=== PATIENT | female | born 1960 | race Caucasian/White ===

== ENCOUNTER → 2019-07-16 15:41 | Outpatient (CLI) | payer OTHER, MEDICAID, SELFPAY ==
--- NOTE | 2019-07-16 | DI.MRI.S_ITS ---
PROCEDURE: MR LUMBAR SPINE WO CON INDICATIONS: CHRONIC LOW BACK PAIN WITH LEFT FOOTDROP TECHNIQUE: Noncontrast sagittal T1 spin echo and T2 fast echo, sagittal STIR, axial T1 and T2 fast spin echo through the lumbar spine. In cases with scoliosis, additional coronal T2 fast spin echo may be performed. COMPARISON: [facility], MR, LUMBAR SPINE W/O CONTRAST, 10/10/2005, 18:29. [facility], CT, ABD/PELVIS W&WO CON (PNL), 11/28/2009, 18:42. [facility], CR, XR LUMBAR SPINE 2 OR 3 VIEWS, 05/01/2019, 15:00. FINDINGS: Image quality: Excellent. Alignment and Curvature: There is a transitional anatomy. Assuming sacralization of L5, the numbering normoncurvature used in this report is identical to the previous comparison MRI report dated 10/10/2005. There is grade 1 anterolisthesis of L3 on L4. Bone Marrow: Marrow is of normal overall signal. No acute vertebral body compression fractures. Spinal Cord: Conus medullaris terminates at the L1-L2 level. Visualized cord demonstrates normal signal and size. Paraspinous Soft Tissues: No paravertebral masses. T12-L1: Preserved disc height and disc signal. There is posterior disc bulge. The central canal is patent. No foraminal stenosis. No definitive nerve root impingement. L1-L2: Large anterior bridging osteophyte complex. Preserved disc height and disc signal. No central canal or foraminal stenosis. L2-L3: Mild loss of disc height and disc signal. There is diffuse posterior disc bulge. Mild bilateral facet arthropathy. The central canal is mildly narrowed. [id number]-kpxpgvew bilateral foraminal stenosis, unchanged compared to the last exam. No definitive nerve root impingement. L3-L4: Moderate loss of disc height and disc signal. There is diffuse posterior disc bulge. Mild to moderate bilateral facet arthropathy. The central canal is mildly narrowed. Snzldmya-[id number] bilateral foraminal stenosis, increased compared to the last exam. No definitive nerve root impingement. L4-L5: Mild loss of disc height. Moderate disc desiccation. There is diffuse posterior disc bulge. Mild to moderate bilateral facet arthropathy. The central canal is mildly narrowed. Severe left and vcybbyri-pn-ehunzf right foraminal stenosis increased comparison last exam. Possible right S1 nerve root impingement. L5-S1: Normal. IMPRESSION: 1. Multilevel degenerative disc disease and facet arthropathy as described. 2. Mild central canal stenosis at L2-L3, L3-L4 and L4-L5. 3. Multilevel foraminal stenoses as described, severe at L4-L5 on the left, [id number]-[id number] at L3 and L4 bilaterally and L5-L5 on the right. 4. Transitional anatomy is present. Thoracic spine x-ray would be helpful to confirm vertebral levels. Please confirm vertebral levels prior to interventional procedures. Dictated by: Sarai Chávez M.D. on 07/16/2019 at 16:36 Approved by: Sarai Chávez M.D. on 07/16/2019 at 17:01
== END ==
PROVIDERS: Family Provider Family Medicine; PCP Family Medicine; Visit Provider Physical Medicine & Rehabilitation
DX: M54.5 Low back pain (principal); M21.372 Foot drop, left foot; M51.36 Other intervertebral disc degeneration, lumbar region; M51.37 Other intervertebral disc degeneration, lumbosacral region; M47.816 Spondylosis without myelopathy or radiculopathy, lumbar region; M47.817 Spondylosis without myelopathy or radiculopathy, lumbosacral region; M48.061 Spinal stenosis, lumbar region without neurogenic claudication; M48.07 Spinal stenosis, lumbosacral region; G89.29 Other chronic pain
CPT/HCPCS: 72148